=== PATIENT | male | born 1995 | race Caucasian/White ===

== ENCOUNTER 2025-09-22 09:55 | Emergency (ER) | payer MEDICAID, SELFPAY ==
[2025-09-22 09:55] VITALS: BMI 20.7
[2025-09-22 10:01] VITALS: BP 125/84; PULSE 97; RESP 19; TEMP 37.2; O2SAT 95
--- NOTE | 2025-09-22 10:42 | EKG_ITS ---
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
--- NOTE | 2025-09-22 10:42 | XR_ITS ---
EXAMINATION: AP chest single view TECHNIQUE: AP portable upright chest single view Date and time: September 22, 2025, 1106 hours INDICATIONS: Chest pain today. FINDINGS: Normal heart size Lungs are clear. Osseous structures are intact IMPRESSION: No active disease
--- NOTE | 2025-09-22 10:42 | PD.EDRME ---
Rapid Medical Screening Exam RME Arrival date/time: 09/22/25 09:55 This is a 30-year-old male that comes into the emergency room with complaints of alcohol withdrawal. Patient states he has been drinking every day for the past year. Patient reports that on was the last time he drank. Patient states that he started developing tremors and some sharp pains in his chest. Patient states he has been able to sleep. Patient states he does want to stop drinking. I have greeted and performed a focused initial assessment of this patient. Initial appropriate labs ordered at this time. A comprehensive ED assessment and evaluation of the patient and analysis of all test and completion of medical decision making process will be conducted by additional ED provider. Chief Complaint: Alcohol Time Seen by Provider: 09/22/25 10:41 Vital signs: Vital Signs Temperature 99.0 F 09/22/25 10:01 Pulse Rate 97 09/22/25 10:01 Respiratory Rate 19 09/22/25 10:01 Blood Pressure 125/84 09/22/25 10:01 Pulse Oximetry (%) 95 09/22/25 10:01 Oxygen Delivery Method Room Air 09/22/25 10:01 Exam: Alert and oriented, breathing even and unlabored Clinical Impression: Chest pain alcohol withdrawal
[2025-09-22 11:02] LABS: Basophils # (Auto) 0.1 Thou/mm3 (0.0-0.2); Basophils % (Auto) 1 % (0-2.5); Eosinophils # (Auto) 0.1 Thou/mm3 (0.0-0.5); Eosinophils % (Auto) 1 % (0-10); Hematocrit 47.7 % (41.0-53.0); Hemoglobin 16.9 g/dL (13.5-16.0); Immature Granulocytes Auto 0.01 Thou/mm3 (0.00-0.00); Lymphocytes # (Auto) 0.5 Thou/mm3 (1.0-4.8); Lymphocytes % (Auto) 6 % (10-50); Mean Corpuscular HGB Conc 35.4 g/dl (31.0-37.0); Mean Corpuscular Hemoglobin 33.0 pg (25.0-35.0); Mean Corpuscular Volume 93 fL (80-100); Monocytes # (Auto) 0.5 Thou/mm3 (0.0-0.8); Monocytes % (Auto) 5 % (0-12); Neutrophils # (Auto) 8.1 Thou/mm3 (1.8-7.7); Neutrophils % (Auto) 88 % (37-80); Nucleated Red Blood Cell # 0.00 Thou/mm3 (0.00-0.00); Nucleated Red Blood Cell % 0 /100 WBC (0); Platelet Count 192 Thou/mm3 (140-440); RDW Standard Deviation 41.1 fL (35.1-43.9); Red Blood Count 5.12 Miln/mm3 (4.50-5.90); White Blood Count 9.2 Thou/mm3 (3.8-10.6)
[2025-09-22 11:03] VITALS: BP 154/102; PULSE 95; RESP 20; O2SAT 99
--- NOTE | 2025-09-22 11:07 | PD.EDALCOH ---
ED Alcohol RME/HPI General Chief Complaint: Alcohol Stated Complaint: POSSIBLE ETOH WITHDRAWAL; DIAPHORETIC Time Seen by Provider: 09/22/25 10:41 Arrival date/time: 09/22/25 09:55 Limitations: no limitations RME / HPI RME / HPI narrative: 09/22/25 09:55 This is a 30-year-old male that comes into the emergency room with complaints of alcohol withdrawal. Patient states he has been drinking every day for the past year. Patient reports that on Thanksgiving was the last time he drank. Patient states that he started developing tremors and some sharp pains in his chest. Patient states he has been able to sleep. Patient states he does want to stop drinking. I have greeted and performed a focused initial assessment of this patient. Initial appropriate labs ordered at this time. A comprehensive ED assessment and evaluation of the patient and analysis of all test and completion of medical decision making process will be conducted by additional ED provider. DR. DESOUZA MAIN ED EVALUATION: 30-year-old male with history of heavy alcohol use presents after drinking heavily on [employer]. He reports he slept and then woke up shaking a few hours ago. He states he has been unable to sleep until today. Symptoms include shaking, nausea, and tingling sensations. He denies vomiting and denies hallucinations. No other complaints. Related Data Previous Rx's ?Medication ?Instructions ?Recorded chlordiazepoxide HCl 25 mg capsule 25 mg PO Q6H PRN alcohol 09/22/25 withdrawal #20 caps ondansetron HCl 4 mg tablet 4 mg PO Q8H PRN nausea and 09/22/25 vomiting 5 days #20 tabs Allergies Allergy/AdvReac Type Severity Reaction Status Date / Time milk Allergy Unknown VOMITING Verified 09/22/25 09:58 Review of Systems Review of Systems Systems Reviewed: All systems reviewed, normal except as documented Past Medical History Past Medical History RESPIRATORY: Positive Asthma Social History SMOKING STATUS: Never smoker SUBSTANCE USE: does not use ALCOHOL: Never ED Exam General Limitations: Present no limitations General appearance: Present alert and in no apparent distress Head Head exam: Present atraumatic, normocephalic and normal inspection Eye Eye exam: Present normal appearance, PERRL and EOMI ENT ENT exam: Present normal exam, normal oropharynx and mucous membranes moist Neck Neck exam: Present normal inspection, full ROM and trachea midline Chest Chest inspection: Present normal inspection and symmetric chest wall rise Respiratory Respiratory exam: Present normal lung sounds bilaterally Cardiovascular Cardiovascular exam: Present regular rate, normal rhythm and normal heart sounds Abdominal Exam Abdominal exam: Present soft and normal bowel sounds Extremities Exam Extremities exam: Present normal inspection and full ROM Back Exam Back exam: Present normal inspection and full ROM Neurological Exam Neurological exam: Present alert, oriented X3, CN II-XII intact and other (tremors present) Psychiatric Psychiatric exam: Present normal affect, normal mood and anxious Skin Skin exam: Present warm, dry, intact and normal color Course Quality Measures none Orders Category Date Time Status EKG (ED ONLY) *Do not use* NOW Care 09/22/25 10:42 Completed EKG (ED Only) Stat Exams 09/22/25 10:42 Draft XR chest 1V Stat Exams 09/22/25 10:42 Completed BNP [B-Type Natriuretic Peptide] Stat Lab 09/22/25 10:56 Completed CBC Stat Lab 09/22/25 10:56 Completed Comprehensive Metabolic Panel Stat Lab 09/22/25 10:56 Completed Drug Screen,Urine Stat Lab 09/22/25 12:08 Completed Magnesium Stat Lab 09/22/25 10:56 Completed Troponin I Stat Lab 09/22/25 10:56 Completed LORazepam [Ativan] Med 09/22/25 10:41 Discontinued 1 mg PO X1 ONE PHENobarbital Inj Med 09/22/25 11:30 Discontinued 260 mg IVP X1 ONE PHENobarbital Inj 300 mg Med 09/22/25 11:13 Discontinued Sodium Chloride 0.9% Flush [NS Flush] 12 ml IVP X1 Ringers Lactated 1000 ml [Lactated Ringers] 1,000 ml Med 09/22/25 11:12 Active IV 125 mls/hr Ringers Lactated 1000 ml [Lactated Ringers] 1,000 ml Med 09/22/25 11:12 Discontinued IV 999 mls/hr chlordiazePOXIDE HCl [Librium] Med 09/22/25 11:12 Active 25 mg PO Q6H PRN Vital Signs Vital signs: Vital Signs Temperature 99.0 F 09/22/25 10:01 Pulse Rate 97 09/22/25 10:01 Respiratory Rate 19 09/22/25 10:01 Blood Pressure 125/84 09/22/25 10:01 Pulse Oximetry (%) 95 09/22/25 10:01 Oxygen Delivery Method Room Air 09/22/25 10:01 Discharge Plan Plan Patient Disposition: HOME (Self Care) Patient condition on transfer: Stable Prescriptions/Referrals Prescriptions/Med Rec: New chlordiazepoxide HCl 25 mg capsule 25 mg PO Q6H PRN (Reason: alcohol withdrawal) Qty: 20 0RF ondansetron HCl 4 mg tablet 4 mg PO Q8H PRN (Reason: nausea and vomiting) 5 Days Qty: 20 0RF Referrals: No Primary/Family,Physician [Primary Care Provider] - In 1 week Problem List Clinical Impression: Alcohol withdrawal syndrome Patient/Caregiver Discharge Instructions Discharge Activity: other Other Activity Instructions:: Make sure to see your primary care doctor in 2 to 3 days Also look for alcohol rehab service as this will help you to stay abstinent from alcohol following You can join AA meetings for abstinence of alcohol Make sure to follow the instructions on the prescription and do not ever mix the Librium with the alcohol Education Materials: Alcohol Withdrawal: What to Expect Print Language: Yemeni Stand Alone Forms: [employer] Award Info., Patient Portal Info Letter Alcohol MDM Narrative MDM Narrative: Aysha Strickland, am scribing for and in the presence of Dr. Desouza. 30-year-old male with shaking, nausea, tingling sensations, and tremors after heavy alcohol use. Exam notable for tremors. Assessment for alcohol withdrawal, anxiety response, and dehydration. Impression is moderate alcohol withdrawal. Plan is to give IV fluids, obtain labs and drug screen, administer Ativan, and discharge. EKG#1: Interpreted by me: sinus rhythm, rate 89, no axis deviation, no ischemia, normal intervals Patient stable for discharge following treatment. 1218: Will give Librium. 1309: Patient doing better after Librium. Will discharge the patient with Librium. Patient data External records reviewed:: [facility] previous records Clinical information provided by:: patient Social determinants that could affect healthcare access:: alcohol use Patient has the following chronic illnesses:: heavy alcohol use How is presenting disease/condition affected by chronic disease/condition?: exacerbated by Evaluation data The following diagnostics were reviewed and interpreted by me:: lab results, radiology exam(s) and EKG tracing(s) (EKG#1: Interpreted by me: sinus rhythm, rate 89, no axis deviation, no ischemia, normal intervals ) Lab and/or radiology exams considered but not ordered:: none Interpretation Summary: See MDM narrative above. 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 FINDINGS: Normal heart size Lungs are clear. Osseous structures are intact IMPRESSION: No active disease Dictated By: Keith Connell MD Medications / Prescriptions Medications or Prescriptions considered but not ordered:: none Medication administrations:: Medication Administration History Chlordiazepoxide HCl (Chlordiazepoxide Hcl 25 Mg Capsule) 25 mg PO Q6H PRN PRN Reason: ALCOHOL WITHDRAWAL Stop: 09/27/25 11:14 Last Admin: 09/22/25 12:21 Dose: 25 mg Documented By: BY Lactated Ringer's (Lactated Ringers) 1,000 mls @ 125 mls/hr IV .Q8H NICHOLAS Stop: 10/22/25 11:11 Last Admin: 09/22/25 11:26 Dose: 125 mls/hr Documented By: BY Discontinued Medications Phenobarbital Sodium 300 mg/ (Sodium Chloride 12 ml) 0 mg IVP X1 ONE Stop: 09/22/25 11:14 Last Admin: 09/22/25 11:39 Dose: Not Given Documented By: BY Non-Admin Reason: Cancelled by Provider Lactated Ringer's (Lactated Ringers) 1,000 mls @ 999 mls/hr IV .Q1H1M ONE Stop: 09/22/25 12:12 Last Admin: 09/22/25 11:29 Dose: 999 mls/hr Documented By: BY Lorazepam (Lorazepam 0.5 Mg Tablet) 1 mg PO X1 ONE Stop: 09/22/25 10:42 Last Admin: 09/22/25 10:51 Dose: 1 mg Documented By: BY Phenobarbital Sodium (Phenobarbital Inj 130 Mg/1 Ml Vial) 260 mg IVP X1 ONE Stop: 09/22/25 11:31 Last Admin: 09/22/25 11:31 Dose: 260 mg Documented By: BY see above Consultations Consultation(s) initiated? (list below): No Diagnosis Differential diagnosis alcohol: other (alcohol withdrawal, anxiety response, and dehydration) Most likely diagnosis given after review of the tests above:: Alcohol withdrawal syndrome Admission Indicated Admission indicated?: not indicated Admission Request Was there a request for admission?: No Disposition Plan Disposition Plan: Discharge Discharge Attestation Discharge Attestation: The patient and all family members were given an opportunity to ask questions and understood the discharge instructions. Discharge instructions specifically effects, indications for sooner follow up or return to the emergency department, and the expected course of current diagnosis. Patient condition: Stable
[2025-09-22 11:25] LABS: B-Type Natriuretic Peptide < 20 pg/mL (0-100)
[2025-09-22] MEDS: RINGERS LACTATED 1000 ML 1,000 ML 125 ML IV (11:26)
[2025-09-22 11:29] LABS: Alanine Aminotransferase 502 U/L (10-49); Albumin, Serum 5.7 gm/dL (3.5-5.0); Albumin/Globulin Ratio 2.5 (1.2-2.2); Alkaline Phosphatase 173 U/L (46-116); Anion Gap 14 (7-16); Aspartate Amino Transferase > 1000 U/L (0-34); BUN/Creatinine Ratio 10 Ratio (12-20); Bilirubin,Total 2.3 mg/dL (0.3-1.2); Blood Urea Nitrogen 10 mg/dL (9-23); Calcium 10.4 mg/dL (8.3-10.6); Calcium (Corrected) 10.4 mg/dL (8.5-10.1); Carbon Dioxide 25.4 mMol/L (20.0-31.0); Chloride 97 mMol/L (98-107); Creatinine (Component) 1.0 mg/dL (0.6-1.3); Estimated Creatinine Clearance 100.5 mL/min (>60); Globulin 2.3 gm/dL (2.3-3.5); Glucose 117 mg/dL (74-106); Osmolality,Calculated 271 (275-295); Potassium 3.6 mMol/L (3.4-5.1); Sodium 136 mMol/L (136-145); Total Protein 8.0 gm/dL (5.7-8.2); Troponin I < 0.002 ng/mL (0.0-0.045); eGFR > 60 See Note
[2025-09-22] MEDS: RINGERS LACTATED 1000 ML 1,000 ML 999 ML IV (11:29)
[2025-09-22] MEDS: PHENobarbital INJ 130 MG/1 ML VIAL 260 MG IVP (11:31)
[2025-09-22 11:51] LABS: Magnesium 1.8 mg/dL (1.6-2.6)
[2025-09-22 12:11] VITALS: BP 133/88; PULSE 101; RESP 18; TEMP 37.1; O2SAT 99
[2025-09-22 13:09] LABS: Amphetamine/Methamp Scrn,U Negative (Negative); Barbiturate Screen,Urine Negative (Negative); Benzodiazepines Screen,Urine Negative (Negative); Benzoylecgonine Screen, Ur Negative (Negative); Fentanyl Screen,Urine Negative (Negative); Opiate Screen,Urine Negative (Negative); THC Screen,Urine Positive (Negative)
[2025-09-22 14:13] VITALS: BP 130/89; PULSE 94; RESP 16; O2SAT 100
[2025-09-22 14:26] VITALS: BP 130/89; PULSE 100; RESP 21; TEMP 37.1; O2SAT 99
== END 2025-09-22 14:43 | disposition home or self-care (01) ==
PROVIDERS: Nurse Practitioner Family; Emergency Provider Emergency Medicine
DX: F10.939 Alcohol use, unspecified with withdrawal, unspecified (principal); R07.9 Chest pain, unspecified
CPT/HCPCS: 36415; 71045; 80053; 80307; 83735; 83880; 84484; 85025; 93005; 96361; 96374; 99284; J2560; J7120; A9270